=== PATIENT | male | born 1940 | race Caucasian/White ===

== ENCOUNTER 2023-01-09 18:53 | Emergency (ER) | payer MEDICARE ==
[~2023-01-09] VITALS: Ht 167.6 cm; Wt 64.4 kg
[2023-01-09 19:16] VITALS: BP 123/91
== END 2023-01-09 21:08 | disposition home or self-care (01) ==
LOC: ER 18:53
DX: M76.892 Other specified enthesopathies of left lower limb, excluding foot (principal)
CPT/HCPCS: 76882; J1885

== ENCOUNTER → 2024-09-11 | Outpatient (CLI) | payer OTHER | LOC: LAB 17:26 → LAB SHORT 17:26 | DX: R31.0 Gross hematuria (principal) | CPT/HCPCS: 87086 ==

== ENCOUNTER 2024-11-26 19:08 | Emergency (ER) | payer OTHER ==
[~2024-11-26] VITALS: Ht 167.6 cm; Wt 63.5 kg
[2024-11-26 19:20] VITALS: BP 148/83
[2024-11-26] MEDS ORDERED: Phenazopyridine HCl 100 MG Tab PO ONE (20:40)
== END 2024-11-26 20:51 | disposition home or self-care (01) ==
LOC: ER 19:08
DX: T83.091A Other mechanical complication of indwelling urethral catheter, initial encounter (principal); Y84.6 Urinary catheterization as the cause of abnormal reaction of the patient, or of later complication, without mention of misadventure at the time of the procedure
CPT/HCPCS: 99282; A9270